=== PATIENT | male | born 1995 | race Hispanic/Latino ===

== ENCOUNTER 2020-06-23 09:47 | Observation (INO) | payer OTHER ==
[2020-06-23] MEDS ORDERED: ONDANSETRON 4 MG/2 ML INJ IV ONE (10:43)
[2020-06-23] MEDS ORDERED: SODIUM CHLORIDE 0.9% 1000 ML 1,000 ML IV ONE ×3 (10:43→13:26)
[2020-06-23 11:40] LABS: Basophils # (Auto) 0.1 K/mm3 (0.0-0.1); Basophils % (Auto) 0.9 % (0.0-1.8); Eosinophils # (Auto) 0.1 K/mm3 (0.0-0.4); Eosinophils % (Auto) 1.5 % (0.0-4.3); Hematocrit 40.5 % (35.5-45.6); Hemoglobin 13.3 gm/dl (11.8-15.2); Lymphocytes # (Auto) 1.5 K/mm3 (1.2-5.4); Lymphocytes % (Auto) 20.8 % (13.4-35.0); Mean Corpuscular HGB Conc 33 % (32-34); Mean Corpuscular Volume 90 fl (84-94); Monocytes # (Auto) 0.7 K/mm3 (0.0-0.8); Monocytes % (Auto) 9.6 % (0.0-7.3); Platelet Count 142 K/mm3 (140-440); Red Blood Count 4.48 M/mm3 (3.65-5.03); Red Cell Distribution Width 14.1 % (13.2-15.2)
[2020-06-23 12:15] LABS: Alanine Aminotransferase 40 units/L (7-56); Albumin 4.2 g/dL (3.9-5); BUN/Creatinine Ratio 21; Blood Urea Nitrogen 21 mg/dL (9-20); Hemolysis Index 9
[2020-06-23 12:16] LABS: Bilirubin,Urine NEG (Negative); Blood,Urine NEG (Negative); Color,Urine Yellow (Yellow); Mucus,Urine FEW /HPF; Protein,Urine <15 mg/dL mg/dL (Negative); Urobilinogen,Urine < 2.0 mg/dL (<2.0)
--- NOTE | 2020-06-23 12:57 | Emergency Department Report ---
ED General Adult HPI - General Chief complaint: Nausea/Vomiting/Diarrhea Stated complaint: N/V Time Seen by Provider: 06/23/20 10:42 Source: patient Mode of arrival: Wheelchair Limitations: No Limitations - History of Present Illness Initial comments: Patient is a 25-year-old male presents emergency room with complaints of nausea and vomiting that began at 5 AM this morning. He states that has been constant. He has associated lightheadedness and feels generalized weakness. He denies any fever, diarrhea, back pain, dark urine. Patient states that he is currently training for the [employer] and has been outside in the sun training all day long. He denies any recent travel. No sick contacts. No past medical history. No allergies to medications. He states that he has been trying to stay hydrated. He was given 1 L of IV fluids by EMS. - Related Data Home Medications Medication Instructions Recorded Confirmed Last Taken No Known Home Medications [No 06/23/20 06/23/20 Unknown Reported Home Medications] Allergies Allergy/AdvReac Type Severity Reaction Status Date / Time No Known Allergies Allergy Unverified 06/23/20 13:33 ED Review of Systems ROS: Stated complaint: N/V Other details as noted in HPI Comment: All other systems reviewed and negative ED Past Medical Hx - Past Medical History Previous Medical History?: No - Surgical History Past Surgical History?: Yes Additional Surgical History: tonsils removed - Social History Smoking Status: Never Smoker Substance Use Type: Alcohol - Medications Home Medications: Home Medications Medication Instructions Recorded Confirmed Last Taken Type No Known Home Medications [No 06/23/20 06/23/20 Unknown History Reported Home Medications] ED Physical Exam - General Limitations: No Limitations General appearance: alert, in no apparent distress - Head Head exam: Present: atraumatic, normocephalic - Eye Eye exam: Present: normal appearance - ENT ENT exam: Present: mucous membranes dry - Respiratory Respiratory exam: Present: normal lung sounds bilaterally. Absent: respiratory distress, wheezes, rales, rhonchi, stridor, chest wall tenderness, accessory muscle use, decreased breath sounds, prolonged expiratory - Cardiovascular Cardiovascular Exam: Present: regular rate, normal rhythm, normal heart sounds. Absent: systolic murmur, diastolic murmur, rubs, gallop - Neurological Exam Neurological exam: Present: alert, oriented X3 - Psychiatric Psychiatric exam: Present: normal affect, normal mood - Skin Skin exam: Present: warm, dry, intact ED Course Vital Signs 06/23/20 06/23/20 06/23/20 09:53 09:54 13:57 Temperature 97.6 F 97.6 F Pulse Rate 57 L 53 L Respiratory 18 20 16 Rate Blood Pressure 122/72 Blood Pressure 122/72 [Left] O2 Sat by Pulse 99 99 99 Oximetry - Reevaluation(s) Reevaluation #1: 06/23/20 13:02 Attempted to call hospitalist number, no one answered 06/23/20 13:16 Called hospitalist number, advised to call back in 5 minutes - Consultations Consultation #1: 06/23/20 13:[address] Sheets, hospitalist who will accept and resume care of patient, will admit to hospitalist service, advised to give patient 1 L bolus of normal saline and then place patient on 250 mL/hr of normal saline ED Medical Decision Making - Lab Data Result diagrams: 06/23/20 11:23 06/23/20 11:23 Lab Results 06/23/20 06/23/20 06/23/20 Range/Units 11:23 11:23 11:56 WBC 7.0 (4.5-11.0) K/mm3 RBC 4.48 (3.65-5.03) M/mm3 Hgb 13.3 (11.8-15.2) gm/dl Hct 40.5 (35.5-45.6) % MCV 90 (84-94) fl MCH 30 (28-32) pg MCHC 33 (32-34) % RDW 14.1 (13.2-15.2) % Plt Count 142 (140-440) K/mm3 Lymph % (Auto) 20.8 (13.4-35.0) % [place] % (Auto) 9.6 H (0.0-7.3) % Eos % (Auto) 1.5 (0.0-4.3) % Baso % (Auto) 0.9 (0.0-1.8) % Lymph # 1.5 (1.2-5.4) K/mm3 [place] # 0.7 (0.0-0.8) K/mm3 Eos # 0.1 (0.0-0.4) K/mm3 Baso # 0.1 (0.0-0.1) K/mm3 Seg Neutrophils % 67.2 (40.0-70.0) % Seg Neutrophils # 4.7 (1.8-7.7) K/mm3 Sodium 141 (137-145) mmol/L Potassium 4.6 (3.6-5.0) mmol/L Chloride 105.7 (98-107) mmol/L Carbon Dioxide 21 L (22-30) mmol/L Anion Gap 19 mmol/L BUN 21 H (9-20) mg/dL Creatinine 1.0 (0.8-1.3) mg/dL Estimated GFR > 60 ml/min BUN/Creatinine Ratio 21 % Glucose 91 (75-100) mg/dL Calcium 8.0 L (8.4-10.2) mg/dL Magnesium 1.90 (1.7-2.3) mg/dL Total Bilirubin 1.00 (0.1-1.2) mg/dL AST 109 H (5-40) units/L ALT 40 (7-56) units/L Alkaline Phosphatase 59 (35-129) units/L Total Creatine Kinase 5538 H (55-170) units/L Total Protein 5.9 L (6.3-8.2) g/dL Albumin 4.2 (3.9-5) g/dL Albumin/Globulin Ratio 2.5 % Urine Color Yellow (Yellow) Urine Turbidity Clear (Clear) Urine pH 5.0 (5.0-7.0) Ur Specific [place] 1.021 (1.003-1.030) Urine Protein <15 mg/dl (Negative) mg/dL Urine Glucose (UA) Neg (Negative) mg/dL Urine Ketones 80 (Negative) mg/dL Urine Blood Neg (Negative) Urine Nitrite Neg (Negative) Urine Bilirubin Neg (Negative) Urine Urobilinogen < 2.0 (<2.0) mg/dL Ur Leukocyte Esterase Neg (Negative) Urine WBC (Auto) 1.0 (0.0-6.0) /HPF Urine RBC (Auto) 2.0 (0.0-6.0) /HPF Urine Mucus Few /HPF - Medical Decision Making Patient is a 25-year-old male presents emergency room with complaints of nausea and vomiting that began at 5 AM this morning. He states that has been constant. He has associated lightheadedness and feels generalized weakness. He denies any fever, diarrhea, back pain, dark urine. Patient states that he is currently training for the [employer] and has been outside in the sun training all day long. He denies any recent travel. No sick contacts. No past medical history. No allergies to medications. He states that he has been trying to stay hydrated. He was given 1 L of IV fluids by EMS. Vitals are stable. No abnormality on physical examination as documented in chart. Labs significant for CK of 5538, UA has 80 ketones, no protein in the urine. Kidney function is normal. AST is elevated, ALT and other liver function tests are normal. Patient given 1 L of IV fluids by EMS, patient given another liter of fluids while in the emergency department. Patient given Zofran. Patient had no further episodes of vomiting while in the emergency department was able to tolerate p.o. intake. Patient will need to be admitted for rhabdomyolysis and IV hydration. Spoke to Dr. Betancur, ER attending who agrees with admission. Spoke to Dr. Sheets, hospitalist who will accept and resume care of patient, will admit to hospitalist service, advised to give patient 1 L bolus of normal saline and then place patient on 250 mL/hr of normal saline - Differential Diagnosis Dehydration, gastritis, JERILYN, rhabdomyolysis, electrolyte disturbance, viral Critical care attestation.: If time is entered above; I have spent that time in minutes in the direct care of this critically ill patient, excluding procedure time. ED Disposition Clinical Impression: Lightheadedness, Dehydration, Generalized weakness, Elevated AST (SGOT) Nausea & vomiting Qualifiers: Vomiting type: unspecified Vomiting Intractability: non-intractable Qualified Code(s): R11.2 - Nausea with vomiting, unspecified Rhabdomyolysis Qualifiers: Rhabdomyolysis type: non-traumatic Qualified Code(s): M62.82 - Rhabdomyolysis Disposition: OP ADMIT IP TO THIS HOSP Is pt being admited?: Yes Does the pt Need Aspirin: No Condition: Fair Time of Disposition: 13:23
[2020-06-23] MEDS ORDERED: ACETAMINOPHEN 325 MG TAB PO PRN (14:36)
[2020-06-23] MEDS ORDERED: ONDANSETRON 4 MG/2 ML INJ IV PRN (14:36)
--- NOTE | 2020-06-23 17:05 | History and Physical Report ---
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 States he woke up with nausea and vomiting and subsequently started feeling lightheaded and in the ED he was noted to be in rhabdomyolysis and patient is being admitted for further management. He was given 2 L of normal saline IV while in ED Past History Past Medical History: No medical history Past Surgical History: tonsillectomy Social history: no significant social history Family history: no significant family history Medications and Allergies Allergies Allergy/AdvReac Type Severity Reaction Status Date / Time No Known Allergies Allergy Unverified 06/23/20 13:33 Home Medications Medication Instructions Recorded Confirmed Last Taken Type No Known Home Medications [No 06/23/20 06/23/20 Unknown History Reported Home Medications] Active Meds: Active Medications Acetaminophen (Tylenol) 650 mg PO Q4H PRN PRN Reason: Pain MILD(1-3)/Fever >100.5/JOHNS Sodium Chloride (Nacl 0.9% 1000 Ml) 1,000 mls @ 250 mls/hr IV ONCE ONE Stop: 06/23/20 17:25 Last Admin: 06/23/20 16:37 Dose: 250 mls/hr Documented by: Sodium Chloride (Nacl 0.9% 1000 Ml) 1,000 mls @ 200 mls/hr IV DIRECT LUZ ELENA Ondansetron HCl (Zofran) 4 mg IV Q8H PRN PRN Reason: Nausea And Vomiting Last Admin: 06/23/20 16:36 Dose: 4 mg Documented by: Sodium Chloride (Sodium Chloride Flush Syringe 10 Ml) 10 ml IV BID LUZ ELENA Sodium Chloride (Sodium Chloride Flush Syringe 10 Ml) 10 ml IV PRN PRN PRN Reason: LINE FLUSH Review of Systems Constitutional: weakness, no weight loss, no weight gain, no fever, no chills Ears, nose, mouth and throat: no ear pain, no sore throat Cardiovascular: lightheadedness, no chest pain, no orthopnea, no palpitations, no syncope, no shortness of breath Respiratory: no cough, no hemoptysis, no shortness of breath Gastrointestinal: nausea, vomiting, no abdominal pain, no diarrhea, no constipation, no melena Genitourinary Male: no dysuria Rectal: no pain Musculoskeletal: no neck stiffness Integumentary: no rash Neurological: no head injury, no seizures, no headaches Exam - Constitutional Vitals: Temp Pulse Resp BP Pulse Ox 97.4 F L 45 L 20 122/59 100 06/23/20 15:15 06/23/20 15:15 06/23/20 15:15 06/23/20 15:15 06/23/20 15:15 General appearance: Present: no acute distress, well-nourished - EENT Eyes: Present: PERRL, EOM intact ENT: hearing intact, clear oral mucosa - Neck Neck: Present: supple, normal ROM - Respiratory Respiratory effort: normal Respiratory: bilateral: CTA - Cardiovascular Rhythm: regular Heart Sounds: Present: S1 & S2 - Extremities Extremities: No edema - Abdominal General gastrointestinal: Present: soft, non-tender. Absent: hepatomegaly, splenomegaly Male genitourinary: Present: deferred - Rectal Rectal Exam: deferred - Integumentary Integumentary: Present: clear - Musculoskeletal Musculoskeletal: strength equal bilaterally - Psychiatric Psychiatric: appropriate mood/affect - Neurologic Neurologic: no focal deficits Results - Labs CBC & Chem 7: 06/23/20 11:23 06/23/20 11:23 Labs: Abnormal lab results 06/23/20 06/23/20 Range/Units 11:23 11:23 [place] % (Auto) 9.6 H (0.0-7.3) % Carbon Dioxide 21 L (22-30) mmol/L BUN 21 H (9-20) mg/dL Calcium 8.0 L (8.4-10.2) mg/dL AST 109 H (5-40) units/L Total Creatine Kinase 5538 H (55-170) units/L Total Protein 5.9 L (6.3-8.2) g/dL Assessment and Plan - Patient Problems (1) Rhabdomyolysis Current Visit: Yes Status: Acute Qualifiers: Rhabdomyolysis type: non-traumatic Qualified Code(s): M62.82 - Rhabdomyolysis Plan to address problem: Admit the patient to medical floor on observation status We will treat the patient with vigorous IV fluids Monitor CK and renal function Urinalysis reviewed (2) Nausea & vomiting Current Visit: Yes Status: Acute Qualifiers: Vomiting type: unspecified Vomiting Intractability: non-intractable Qualified Code(s): R11.2 - Nausea with vomiting, unspecified Plan to address problem: Most likely from exertion and dehydration IV Zofran as needed
[2020-06-23] MEDS: SODIUM CHLORIDE 0.9% 1000 ML 1,000 ML IV SCH (20:49)
[2020-06-24] MEDS: SODIUM CHLORIDE 0.9% 1000 ML 1,000 ML IV SCH ×4 (02:29→18:40)
[2020-06-24 06:22] LABS: BUN/Creatinine Ratio 12; Blood Urea Nitrogen 13 mg/dL (9-20); Calcium 7.9 mg/dL (8.4-10.2); Hemolysis Index 23
[2020-06-24] MEDS: NEOMY 3.5 MG/BACIT 400 UNITS/POLY B 5000 UNITS/GM OINT PACKET TP SCH ×3 (12:22→20:56)
--- NOTE | 2020-06-24 20:40 | Progress Note ---
Assessment and Plan --Rhabdomyolysis cont to treat the patient with vigorous IV fluids Monitor CPK and renal function Urinalysis reviewed -- Nausea & vomiting Most likely from exertion and dehydration IV Zofran as needed -- DVT Px, lovenox 06/24; continue to monitor CPK level, continue aggressive IV fluid hydration, repeat BMP in the morning. If CPK continues to trend down possible DC tomorrow. Subjective Date of service: 06/24/20 Interval history: Patient seen and examined. Medical records and medication list reviewed. No acute event overnight noted by the RN. Patient denies any chest pain or difficulty breathing. Patient is tolerating diet. Discussed plan of care at bedside with patient. Objective - Exam Narrative Exam: General appearance: Present: no acute distress, well-nourished - EENT Eyes: Present: PERRL, EOM intact ENT: hearing intact, clear oral mucosa - Neck Neck: Present: supple, normal ROM - Respiratory Respiratory effort: normal Respiratory: bilateral: CTA - Cardiovascular Rhythm: regular Heart Sounds: Present: S1 & S2 - Extremities Extremities: No edema - Abdominal General gastrointestinal: Present: soft, non-tender. Absent: hepatomegaly, sp lenomegaly Male genitourinary: Present: deferred - Rectal Rectal Exam: deferred - Integumentary Integumentary: Present: clear - Musculoskeletal Musculoskeletal: strength equal bilaterally - Psychiatric Psychiatric: appropriate mood/affect - Neurologic Neurologic: no focal deficits - Constitutional Vitals: Vital Signs - 12hr 06/24/20 06/24/20 11:08 16:59 Temperature 99.6 F 98.6 F Pulse Rate 47 L 45 L Respiratory 20 20 Rate Blood Pressure 112/45 110/52 O2 Sat by Pulse 96 98 Oximetry - Labs CBC & Chem 7: 06/23/20 11:23 06/24/20 04:30 Labs: Abnormal lab results 06/24/20 06/24/20 06/24/20 Range/Units 04:30 04:30 19:18 Chloride 108.8 H (98-107) mmol/L Carbon Dioxide 20 L (22-30) mmol/L Glucose 108 H (75-100) mg/dL Calcium 7.9 L (8.4-10.2) mg/dL Total Creatine Kinase 2623 H 1597 H (55-170) units/L
[2020-06-25 08:54] LABS: BUN/Creatinine Ratio 9; Blood Urea Nitrogen 10 mg/dL (9-20); Calcium 8.7 mg/dL (8.4-10.2); Hemolysis Index 3
[2020-06-25] MEDS: NEOMY 3.5 MG/BACIT 400 UNITS/POLY B 5000 UNITS/GM OINT PACKET TP SCH (11:58)
[2020-06-25 12:00] VITALS: BP 113/46
--- NOTE | 2020-06-25 20:23 | Discharge Summary ---
Providers - Providers Date of Admission: 06/23/20 13:29 Attending physician: FAB FRANCE Primary care physician: MANAGER [employer]URANT Hospitalization Condition: Fair Hospital course: 25-year-old male with no past medical history presents to [facility] for care and evaluation. Patient seen and evaluated in the emergency department. Lab and imaging studies reviewed. Patient found to have volume depletion complicated by acute rhabdomyolysis. Patient admitted to medical floor and treated with IV fluid resuscitation therapy. Patient convalesced well during hospital course. Patient creatinine kinase levels diminished exponentially on a daily basis. Patient medically optimized on the date of discharge. Patient seen and evaluated prior to discharge but no significant new physical exam findings. Patient discharged home and instructed to follow-up with primary care physician within 3 to 5 days with repeat BMP as well as CK level. Patient instructed to ingest 2 to 3 L of water daily. 35 minutes dedicated to patient discharge and coordination of care. Disposition: - TO HOME OR SELFCARE Time spent for discharge: 35 minutes - Discharge Diagnoses (1) Dehydration Status: Acute (2) Generalized weakness Status: Acute (3) Rhabdomyolysis Status: Acute Qualifiers: Rhabdomyolysis type: non-traumatic Qualified Code(s): M62.82 - Rhabdomyolysis Core Measure Documentation - Palliative Care Palliative Care/ Comfort Measures: Not Applicable - Core Measures Any of the following diagnoses?: none Exam - Constitutional Vitals: Temp Pulse Resp BP Pulse Ox 98.1 F 49 L 16 113/46 96 06/25/20 11:09 06/25/20 11:09 06/25/20 11:09 06/25/20 11:09 06/25/20 11:09 General appearance: Present: no acute distress, well-nourished - EENT Eyes: Present: PERRL ENT: hearing intact, clear oral mucosa - Neck Neck: Present: supple, normal ROM - Respiratory Respiratory effort: normal Respiratory: bilateral: CTA - Cardiovascular Heart Sounds: Present: S1 & S2. Absent: rub, click - Extremities Extremities: pulses symmetrical, No edema Peripheral Pulses: within normal limits - Abdominal General gastrointestinal: Present: soft, non-tender, non-distended, normal bowel sounds Male genitourinary: Present: normal - Integumentary Integumentary: Present: clear, warm, dry - Musculoskeletal Musculoskeletal: gait normal, strength equal bilaterally - Psychiatric Psychiatric: appropriate mood/affect, intact judgment & insight - Neurologic Neurologic: CNII-XII intact, moves all extremities Plan Activity: advance as tolerated Follow up with: PRIMARY CARE, [Primary Care Provider] - 3-5 Days
== END 2020-06-25 14:45 | disposition home or self-care (01) ==
LOC: ED 09:47 → EEVIPCON 13:29 → 3A 13:29
PROVIDERS: ADMIT Internal Medicine; ATTEND Internal Medicine
DX: M62.82 Rhabdomyolysis (principal); E86.0 Dehydration; R42 Dizziness and giddiness; R79.89 Other specified abnormal findings of blood chemistry; Z90.49 Acquired absence of other specified parts of digestive tract
CPT/HCPCS: 36415; 80048; 80053; 81001; 82550; 83735; 85025; 96361; 96374; 96376; 99284; G0378; J2405; J7030; A6250